=== PATIENT | male | born 1980 | race Caucasian/White ===

== ENCOUNTER 2018-04-02 14:25 | Outpatient (CLI) | payer BC, OTHER ==
[~2018-04-02] VITALS: Ht 167.6 cm; Wt 78.0 kg
[2018-04-02 14:35] VITALS: BP 145/93
[2018-04-02] MEDS ORDERED: NF-STRAT25 PO (15:54)
[2018-04-02] MEDS ORDERED: METO-387 PO (15:54)
== END 2018-04-02 15:05 | disposition home or self-care (01) ==
LOC: PREOP 14:25
PROVIDERS: ATTEND Otolaryngology Otolaryngology/Facial Plastic Surgery
DX: Z01.818 Encounter for other preprocedural examination (principal)
CPT/HCPCS: 87081; 93005

== ENCOUNTER 2018-04-06 06:04 | Day surgery (SDC) | payer BC, OTHER ==
[~2018-04-06] VITALS: Ht 167.6 cm; Wt 78.0 kg
[~2018-04-06 06:04] MED LIST: METO-387 PO; NF-STRAT25 PO
--- OUTSIDE RECORDS SUMMARY | 2018-04-06 06:10 | XMS REPORT ---
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 Name Role Phone WISAMNICOLE REBECA Unavailable PROBLEMS Type Condition ICD9-CM Code [id number] Code Onset Dates Condition Status SNOMED Code Problem Essential hypertension I10 Active 85754926 Problem Impetigo L01.00 Active 26583193 Problem Cyst, dermoid, face D23.30 Active 234936825 Problem ADHD, hyperactive-impulsive type F90.1 Active 6907117 ALLERGIES No Known Allergies ENCOUNTERS Encounter Location Date Diagnosis [address] [id number] [id number] Apr, [address] [id number] [id number] Mar, Essential hypertension I10 [address] [id number] [id number] Feb, Impetigo L01.00 ; Cyst, dermoid, face D23.30 ; ADHD, hyperactive- impulsive type F90.1 and Essential hypertension I10 IMMUNIZATIONS No Known Immunizations SOCIAL HISTORY Never Assessed REASON FOR VISIT Establish Care. Last physician was Dr Pineda over 5 to 6 years ago. Cyst on left side of mouth and rashes. bferrisma PLAN OF CARE Activity Details Follow Up 4 Weeks Reason:b/p VITAL SIGNS Height 70 in 2018-03-06 Weight 181.4 lbs 2018-03-06 Temperature 97.0 degrees Fahrenheit 2018-03-06 Heart Rate 78 bpm 2018-03-06 Respiratory Rate 20 2018-03-06 Oximetry 99 % 2018-03-06 BMI 26.03 kg/m2 2018-03-06 Blood pressure systolic 149 mmHg 2018-03-06 Blood pressure diastolic 89 mmHg 2018-03-06 MEDICATIONS Medication Instructions Dosage Frequency Start Date End Date Duration Status Bactrim DS 800-160 MG Orally Twice a day 1 tablet 12h Feb, Mar, 10 day(s) Active Strattera 25 MG Orally Once a day 1 capsule 24h Feb, 30 day(s) Active Metoprolol Succinate ER 25 MG Orally Once a day 1 tablet at bedtime 24h Feb, 30 day(s) Active RESULTS No Results PROCEDURES No Known procedures INSTRUCTIONS MEDICATIONS ADMINISTERED No Known Medications MEDICAL (GENERAL) HISTORY Type Description Date Medical History ADHD Medical History OCD
[2018-04-06] MEDS ORDERED: LACTATED RINGERS 1,000 ML IV PRN (06:11)
[2018-04-06 06:15] VITALS: BP 142/99
[2018-04-06] MEDS ORDERED: ONDANSETRON 4 MG/2 ML (SDV) Z0FRAN ONE (06:35)
[2018-04-06] MEDS ORDERED: LIDOCAINE PF 2% 2 ML (XYLOCAINE) VIAL ONE ×2 (06:35→06:36)
[2018-04-06] MEDS ORDERED: proPOfol 200 MG/20 ML (DIPRIVAN) VIAL IV ONE (06:35)
[2018-04-06] MEDS ORDERED: MIDAZOLAM 2 MG/2 ML (VERSED) VIAL ONE (06:36)
[2018-04-06] MEDS ORDERED: DEXAMETHASONE 10 MG/ML (DECADRON) 1 ML VIAL ONE (06:36)
[2018-04-06] MEDS ORDERED: fentaNYL INJECTION 100 MCG/2 ML AMP ONE (06:36)
[2018-04-06] MEDS ORDERED: SEVOFLURANE (ULTANE) 15 ML INHAL SOLN ONE ×5 (06:36→08:00)
[2018-04-06] MEDS ORDERED: LIDOCAINE/EPI 1%-1:200,000 (XYLOCAINE) 10 ML VIAL ONE (07:05)
--- NOTE | 2018-04-06 07:11 | Progress Note-Pre Operative ---
Pre-Operative Progress Note H&P Reviewed The H&P was reviewed, patient examined and no changes noted. Date Seen by Provider: Apr 06, 2018 Time Seen by Provider: 07:00 Date H&P Reviewed: Apr 06, 2018 Time H&P Reviewed: 07:00 Pre-Operative Diagnosis: Left Cheek Mass SARKIS FUNK MD Apr 06, 2018 7:11 am
[2018-04-06] MEDS ORDERED: MUPIROCIN 2% OINT 22 GM (BACTROBAN) TUBE ONE (08:01)
--- NOTE | 2018-04-06 08:08 | Progress Note-Post Operative ---
Post-Operative Progess Note Surgeon (s)/Vp Client Services (s) Surgeon SARKIS FUNK MD Vp Client Services n/a Pre-Operative Diagnosis Left Cheek Mass Post-Operative Diagnosis same Post-Op Procedure Note Date of Procedure: Apr 06, 2018 Name of Procedure Performed: Excision of Left CVheek Mass with INtermediate Repair Description & Findings Description and Findings: n/a Anesthesia Type gen lma Estimated Blood Loss minimal Packing none. Specimen(s) collected/removed left cheek mass to pathology SARKIS FUNK MD Apr 06, 2018 8:08 am
[2018-04-06] MEDS ORDERED: HYDROcodone/APAP 5 MG/325 MG (LORTAB) TAB PO PRN (08:15)
[2018-04-06] MEDS ORDERED: ACETAMINOPHEN 325 MG TABLET PO PRN (08:15)
[2018-04-06] MEDS ORDERED: ONDANSETRON 4 MG/2 ML (SDV) Z0FRAN IVP PRN (08:30)
[2018-04-06] MEDS ORDERED: morphine INJ 10 MG/ML 1ML (SYR OR VIAL) IVP ONE (08:30)
[2018-04-06] MEDS ORDERED: fentaNYL INJECTION 100 MCG/2 ML AMP IVP ONE (08:30)
[2018-04-06 09:10] VITALS: BP 144/86
[2018-04-06] MEDS ORDERED: HYDR-3812 PO (09:27)
--- NOTE | 2018-04-06 09:30 | Anesthesia-General Post-Op ---
General Patient Condition Mental Status/LOC: Same as Preop Cardiovascular: Satisfactory Nausea/Vomiting: Absent Respiratory: Satisfactory Pain: Controlled Complications: Absent Post Op Complications Complications None Follow Up Care/Instructions Patient Instructions None needed. Anesthesia/Patient Condition Patient Condition Patient is doing well, no complaints, stable vital signs, no apparent adverse anesthesia problems. No complications reported per nursing. LUCIO BARAJAS CRNA Apr 06, 2018 09:30
[2018-04-06 09:40] VITALS: BP 118/76
[2018-04-06 10:05] VITALS: BP 126/86
== END 2018-04-06 10:05 | disposition home or self-care (01) ==
LOC: SDC 06:04
PROVIDERS: ATTEND Otolaryngology Otolaryngology/Facial Plastic Surgery
DX: L72.0 Epidermal cyst (principal); I10 Essential (primary) hypertension; Z87.891 Personal history of nicotine dependence; F41.9 Anxiety disorder, unspecified; F31.9 Bipolar disorder, unspecified; F90.9 Attention-deficit hyperactivity disorder, unspecified type; Z79.899 Other long term (current) drug therapy